=== PATIENT | female | born 1985 | race Caucasian/White ===

== ENCOUNTER 2023-11-08 12:09 | Outpatient (CLI) | payer OTHER, SELFPAY | END 2023-11-08 12:10 | disposition home or self-care (01) | LOC: MRI 12:09 | PROVIDERS: ATTEND Dentist Oral and Maxillofacial Surgery | DX: M26.621 Arthralgia of right temporomandibular joint (principal); M26.631 Articular disc disorder of right temporomandibular joint; M79.18 Myalgia, other site; M65.9 Synovitis and tenosynovitis, unspecified | CPT/HCPCS: 70336 ==